=== PATIENT | male | born 1970 | race Caucasian/White ===

== ENCOUNTER 2016-05-18 15:53 | Inpatient (IN) | payer MEDICAID ==
[~2016-05-18] VITALS: Ht 170.2 cm; Wt 73.0 kg
[~2016-05-18 15:53] MED LIST: IBUP800T25 PO
[2016-05-18] MEDS ORDERED: ONDANSETRON (ODT) 4 MG TAB ODT STA ×2 (18:13→19:51)
[2016-05-18] MEDS ORDERED: LIDOCAINE/MYLANTA 40 ML BTL PO STA (18:13)
[2016-05-18] MEDS ORDERED: FAMOTIDINE 20 MG TAB PO STA (18:13)
[2016-05-18] MEDS ORDERED: HYDROCODONE/APAP (5/325) TAB PO ONE (18:30)
[2016-05-18 18:48] LABS: ADD UMIC YES; URINE BILIRUBIN (Dip) NEGATIVE (NEGATIVE); URINE BLOOD (Dip) 1+ (NEGATIVE); URINE COLOR LT. YELLOW (YELLOW); URINE KETONES (Dip) NEGATIVE (NEGATIVE); URINE LEUKOCYTE ESTERASE (Dip) NEGATIVE (NEGATIVE); URINE NITRITE (Dip) NEGATIVE (NEGATIVE); URINE TOTAL PROTEIN (Dip) 2+ (NEGATIVE); URINE UROBILINOGEN (Dip) 0.2 E.U./dL (0.1-1.0)
--- NOTE | 2016-05-18 18:55 | RADRPT ---
PROCEDURE: Abdominal ultrasound CLINICAL INDICATION: Abdominal pain TECHNIQUE: Yap scale, color Doppler, and spectral Doppler ultrasound images of the right upper qu adrant. COMPARISON: None FINDINGS: Pancreas: Visualized portions appear of normal echogenicity, no focal lesions. Liver: Morphology: Normal in size and contour. Echogenicity: Normal. Focal lesions: None. Main portal vein: Patent with hepatopetal flow. Biliary System: Normal appearing gallbladder wall. Multiple gallstones are present. No intra or extra-hepatic biliary dilatation. Common bile duct measures 3.3 mm in maximal dimension. Kidneys: Right 11.0 cm in length. Normal echogenicity. No hydronephrosis. 9 mm nonobstructive renal calculus is present. No free fluid identified. IMPRESSION: Cholelithiasis without evidence of abnormal gallbladder wall thickening to suggest cholecystitis. Normal caliber of the intrahepatic and extrahepatic biliary system. Nonobstructive 9 mm calculus of the right kidney. RPTAT: AADD .Arsen Stephenson MD, MD Date Time Electronically viewed and signed by .Arsen Stephenson MD, on 05/18/2016 18:55 .B/
[2016-05-18 19:07] LABS: HEMATOCRIT 43.6 % (42.0-52.0); HEMOGLOBIN 14.6 g/dl (14.0-18.0); MEAN CORPUSCULAR HEMOGLOBIN 30.6 pg (29.0-33.0); MEAN CORPUSCULAR HGB CONC 33.3 g/dl (32.0-37.0); MEAN CORPUSCULAR VOLUME 91.8 fl (82.0-101.0); MEAN PLATELET VOLUME 8.4 fl (7.4-10.4); PLATELET COUNT 249 10^3/UL (140-440); RED BLOOD COUNT 4.75 10^6/ul (4.70-6.10); RED CELL DISTRIBUTION WIDTH 13.1 % (11.5-14.5); UNCORRECTED WBC 19.3 10^3/ul (4.8-10.8); WHITE BLOOD COUNT 19.3 10^3/ul (4.8-10.8)
[2016-05-18 19:08] LABS: CONDITION 1; LH ANALYZER COMMENTS 1
[2016-05-18 19:12] LABS: SQUAMOUS EPITHELIAL CELL,UR RARE
[2016-05-18 19:20] LABS: ALBUMIN 4.7 g/dl (3.3-4.9); POTASSIUM 3.7 mmol/L (3.5-5.1)
[2016-05-18 19:22] LABS: BILIRUBIN,INDIRECT 0.2 mg/dl (0-1.1); BILIRUBIN,TOTAL 0.2 mg/dl (0.2-1.3); CREATININE 0.85 mg/dl (0.61-1.24)
[2016-05-18 19:23] LABS: ALBUMIN/GLOBULIN RATIO 1.11; CALCIUM 9.4 mg/dl (8.4-10.2); TOTAL PROTEIN 8.9 g/dl (6.1-8.1)
[2016-05-18 19:56] LABS: LYMPHOCYTES # 1.5 10^3/ul (0.8-2.9); MONOCYTE # 0.4 10^3/ul (0.3-0.9); NEUTROPHIL # 17.4 10^3/ul (1.6-7.5)
[2016-05-18 19:57] LABS: PLATELET ESTIMATE PLT APPEAR ADEQUATE
[2016-05-18] MEDS ORDERED: morphine 10 MG INJ IM ONE (20:00)
--- NOTE | 2016-05-18 20:35 | RADRPT ---
PROCEDURE: CT Abdomen and Pelvis without contrast. CLINICAL INDICATION: Epigastric pain. TECHNIQUE: A CT scan of the abdomen and pelvis was performed without intravenous contrast. Zazueta l and sagittal reformatted images were generated. Images were reviewed on a high-resolution PACS wor kstation. CTDIvol: 8.70 mGy. DLP: 479.88 mGy-cm. COMPARISON: None. FINDINGS: The lung bases are clear. Evaluation of the abdominal and pelvic viscera is limited by the lack of oral and intravenous contra st. The liver is unremarkable. TheThere are stones in the gallbladder. The common bile duct is not dila domonique. The spleen is not enlarged. No pancreatic lesion is identified and there is no pancreatic ducta l dilatation. The adrenal glands are unremarkable. The kidneys are normal in size. There is no perinephric fat stranding. No hydronephrosis is seen. No urinary stone is identified. There is a 6 mm nonobstructing stone in the right kidney. The small and large bowel are normal in caliber. There is no bowel wall thickening. There is mild co lonic diverticulosis, most prominent along the descending colon. The appendix is normal. The urinary bladder is unremarkable. The pelvic organs are within normal limits. No lymphadenopathy is identified. There is no ascites. No pneumoperitoneum is seen. There hazy saccu lar aneurysm of the distal abdominal aorta measuring 3.2 cm in diameter. A 2.6 cm linear calcificat ion is seen within the central aortic lumen at this site, nonspecific. Minimal additional arterial c alcifications are identified. No suspicious osseous lesion is idenitified. IMPRESSION: 1. No inflammation, mass, or lymphadenopathy. 2. Normal appendix. 3. Nonobstructing 6 mm stone in the right kidney. 4. Cholelithiasis. 5. Mild colonic diverticulosis. 6. Distal abdominal aortic aneurysm measuring 3.2 cm in diameter. A 2.6 cm linear calcification is seen within the central aortic lumen at this site, nonspecific but possibly representing a partially calcified mural thrombus or an old dissection flap. This could be further evaluated with a CTA if clinically warranted. RPTAT: HTAR .Jone Díaz MD, MD Date Time Electronically viewed and signed by .Jone Díaz MD, on 05/18/2016 20:35 .R/
[2016-05-18] MEDS ORDERED: SOD CHLORIDE 0.9% 1,000 ML IV STA (20:51)
[2016-05-18] MEDS ORDERED: SOD CHLORIDE 0.9% 100 ML ONE (21:11)
[2016-05-18] MEDS ORDERED: IOHEXOL 100 ML ONE (21:11)
[2016-05-18] MEDS ORDERED: IOHEXOL 350MG/ML 50 ML BTL ONE (21:12)
--- NOTE | 2016-05-18 22:09 | RADRPT ---
PROCEDURE: CT abdomen and pelvis with. contrast. CLINICAL INDICATION: Epigastric pain. TECHNIQUE: IV contrast enhanced CT angiography examination of the abdomen and pelvis, with axial, sagittal and coronal reformatted images. 120 cc Omnipaque 350 nonionic IV contrast were employed. A utomated dose exposure control was employed. CTDI: 21.51 mGy and DLP: 496.24 mGy-cm. COMPARISON: None. FINDINGS: CT abdomen: The lung bases are clear. The heart size is normal, without pericardial thickening or effusion. The liver is normal in size and density without focal mass or intrahepatic biliary dilatation. The spleen is normal in size and homogeneous in density. The stomach is partially collapsed, but is delfina ssly unremarkable. The pancreas as visualized is normal. The gallbladder has gallstones with mild pericholecystic fluid and findings are suspicious for acute cholecystitis in setting of epigastric p ain. Recommend ultrasound correlation. Otherwise, the biliary tree is unremarkable and there is no evidence for biliary dilatation. The adrenal glands are symmetric and normal. The kidneys are sym metrically unremarkable as well. 5 cm nonobstructing calculus in the right kidney, otherwise, there is no evident left renal calculus, or bilateral obstructive uropathy or mass lesion is seen. 3 cm diameter distal abdominal aortic aneurysm with focal dissection and calcified intimal flap, oth erwise age indeterminate. The dissection is about 3 to 4 cm above the bifurcation. Aortic vascular c alcifications are present. There is no retroperitoneal lymphadenopathy. The sushant hepatis region i s clear. The bowel and mesentery, as visualized, are equally unremarkable. CT pelvis: Solid stool in the distal and terminal ileum compatible with small bowel motility disorder. The pel alecia organs are normal. The pelvic sidewalls and inguinal regions are clear. The sigmoid colon and rectum are all unremarkable. No mass, lymphadenopathy, or free fluid is seen. No acute inflammatio n is seen. The appendix is unremarkable. The surrounding osseous structures are remarkable for mild degenerative spondylosis of the spine. N o osteolytic or osteoblastic lesion is detected. IMPRESSION: 1. Gallstones with pericholecystic fluid, and findings may represent acute cholecystitis in setting of epigastric pain. 2. Recommend ultrasound correlation. 3. Solid stool in the distal and terminal ileum compatible with small bowel motility disorder, othe rwise nonspecific. 4. 3 cm diameter distal abdominal aortic aneurysm, with focal dissection, otherwise age indetermina te. RPTAT: [facility] Halle Silva Physician Date Time Electronically viewed and signed by Halle Silav Physician on 05/18/2016 22:09 RS/
[2016-05-18 22:15] VITALS: TEMP 98.5
[2016-05-18] MEDS ORDERED: PIPER-TAZO 3.375 GM IV (PMX) 100 ML IVPB ONE (22:30)
--- NOTE | 2016-05-18 22:36 | ERD ---
ER Documentation Chief Complaint Date/Time DATE: 05/18/16 TIME: 22:28 Chief Complaint Epigastric pain sice 1330 after eating lunch HPI Patient is a 45-year-old diabetic and hypertensive male who presents to the ED with sudden onset of epigastric pain that started today at 2 PM after eating food. He states that he had cake, oranges and vegetables with rice. He states that the pain is constant. He has never had this pain in the past. He has had one episode of non-bilious non-bloody emesis. He states that the pain as a burning sensation. He denies any radiation of pain. He denies fever or chills. He denies diarrhea, constipation. He denies headache or dizziness. He denies leg pain or swelling. He has taken Pepcid but states that has not helped with his symptoms. ROS All systems reviewed and are negative except as per history of present illness. Medications Home Meds Active Scripts Ibuprofen* (Motrin*) 800 Mg Tab, 800 MG PO Q6, #30 TAB Prov:CELSO BOLANOS PA-C 12/10/14 Allergies Allergies: Coded Allergies: No Known Allergy (Unverified , 05/18/16) PMhx/Soc Medical and Surgical Hx: pt denies Medical Hx, pt denies Surgical Hx History of Surgery: No Anesthesia Reaction: No Hx Neurological Disorder: No Hx Respiratory Disorders: No Hx Cardiac Disorders: Yes (htn) Hx Psychiatric Problems: No Hx Miscellaneous Medical Probl: Yes (dm) Hx Alcohol Use: Yes (OCCASSIONAL) Hx Substance Use: No Hx Tobacco Use: No Smoking Status: Former smoker FmHx Family History: No coronary disease, No diabetes, No other Physical Exam Vitals Vital Signs Date Time Temp Pulse Resp B/P Pulse Ox O2 Delivery O2 Flow Rate FiO2 05/18/16 20:02 98.7 71 18 177/91 99 Room Air 05/18/16 16:09 98.4 72 16 170/92 100 Physical Exam GENERAL: Well-developed, well-nourished male. Appears in mild distress HEAD: Normocephalic, atraumatic. EYES: Pupils are equally reactive bilaterally. EOMs grossly intact. No conjunctival erythema. ENT: Moist mucous membranes. No uvula deviation. No kissing tonsils. No exudates. NECK: Supple. No lymphadenopathy or thyromegaly. No meningismus. LUNG: Clear to auscultation bilaterally. No rhonchi, wheezing, rales or coarse breath sounds. HEART: Regular rate and rhythm. No murmurs, rubs or gallops. ABDOMEN: No scars, ecchymosis or rashes noted. Soft, and nondistended. Positive bowel sounds in all four quadrants. No rebound tenderness, no guarding. (-) McBurneys point tenderness. No CVA tenderness. tenderness in epigastric region and RUQ. BACK: No midline tenderness. Extremities: Equal pulses bilaterally. No peripheral clubbing, cyanosis or edema. No unilateral leg swelling. NEUROLOGIC: Alert and oriented. Moving all four extremities. 5/5 strength in all extremities. Normal speech. Steady gait. SKIN: Normal color. Warm and dry. No rashes or lesions. Capillary refill < 2 seconds Result Diagram: 05/18/16182205/18/161822 Results 24 hrs Laboratory Tests Test 05/18/16 18:23 Alanine Aminotransferase (ALT/SGPT) 32IU/L Albumin 4.7g/dl Albumin/Globulin Ratio 1.11 Alkaline Phosphatase 86IU/L Anion Gap 21 Aspartate Amino Transf (AST/SGOT) 27IU/L Blood Urea Nitrogen 12mg/dl Calcium Level 9.4mg/dl Carbon Dioxide Level 27mmol/L Chloride Level 102mmol/L Creatinine 0.85mg/dl Direct Bilirubin 0.00mg/dl Globulin 4.20g/dl Glucose Level 181mg/dl Hematocrit 43.6% Hemoglobin 14.6g/dl Indirect Bilirubin 0.2mg/dl Lipase 156U/L Lymphocytes # 1.510^3/ul Lymphocytes % 8.0% Mean Corpuscular Hemoglobin 30.6pg Mean Corpuscular Hemoglobin Concent 33.3g/dl Mean Corpuscular Volume 91.8fl Mean Platelet Volume 8.4fl Monocytes # 0.410^3/ul Monocytes % 2.0% Neutrophils # 17.410^3/ul Neutrophils % 90.0% Platelet Count 76646^3/UL Platelet Estimate PLT APPEAR ADEQUATE Potassium Level 3.7mmol/L Red Blood Count 4.7510^6/ul Red Cell Distribution Width 13.1% Sodium Level 146mmol/L Total Bilirubin 0.2mg/dl Total Protein 8.9g/dl Troponin I < 0.010ng/ml Urine Bilirubin NEGATIVE Urine Clarity CLEAR Urine Color LT. YELLOW Urine Glucose 0.5%% Urine Hemoglobin 1+ Urine Ketones NEGATIVE Urine Leukocyte Esterase NEGATIVE Urine Microscopic RBC 2-5/HPF Urine Microscopic WBC 0-2/HPF Urine Nitrite NEGATIVE Urine Specific [place] 1.020 Urine Squamous Epithelial Cells RARE Urine Total Protein 2+ Urine Urobilinogen 0.2 E.U./dL Urine pH 8.0 White Blood Count 19.310^3/ul Current Medications Medications (Trade) Dose Ordered Sig/Vicky Route PRN Reason Start Time Stop Time Status Last Admin Dose Admin Famotidine (Pepcid) 20 mg ONCE STAT PO 05/18/16 18:13 05/18/16 18:15 DC 05/18/16 18:52 Miscellaneous Medication (Gi Cocktail (2)) 40 ml ONCE STAT PO 05/18/16 18:13 05/18/16 18:15 DC 05/18/16 18:52 Ondansetron HCl (Zofran Odt) 4 mg ONCE STAT ODT 05/18/16 18:13 05/18/16 18:15 DC 05/18/16 18:52 Acetaminophen/ Hydrocodone Bitart (Fox (5/325)) 1 tab ONCE ONCE PO 05/18/16 18:30 05/18/16 18:31 DC 05/18/16 18:52 Morphine Sulfate (morphine) 4 mg ONCE ONCE IM 05/18/16 20:00 05/18/16 20:05 DC 05/18/16 20:04 Ondansetron HCl 4 mg 4 mg ONCE STAT ODT 05/18/16 19:51 05/18/16 19:52 DC 05/18/16 20:04 Sodium Chloride (NS) 1,000 ml @ 1,000 mls/hr Q1H STAT IV 05/18/16 20:51 05/18/16 21:50 DC 05/18/16 22:05 IV Flush 10 ml 10 ml STK-MED ONCE .ROUTE 05/18/16 21:11 05/18/16 21:12 DC 05/18/16 21:44 Sodium Chloride 100 ml @ ud STK-MED ONCE .ROUTE 05/18/16 21:11 05/18/16 21:12 DC 05/18/16 21:44 Iohexol (Omnipaque) 100 ml @ ud STK-MED ONCE .ROUTE 05/18/16 21:11 05/18/16 21:12 DC 05/18/16 21:44 Iohexol 50 ml 50 ml STK-MED ONCE .ROUTE 05/18/16 21:12 05/18/16 21:13 DC 05/18/16 21:44 Piperacillin Sod/ Tazobactam Sod (Zosyn 3.375gm/ 100 ml (Pmx)) 100 ml @ 200 mls/hr ONCE ONCE IVPB 05/18/16 22:30 05/18/16 22:59 Procedures/MDM ER COURSE: I kept the patient and/or family informed of laboratory and diagnostic imaging results throughout the emergency room course. EKG, MONITORS, & DIAGNOSTIC IMAGING: [place] [address] Radiology Main Line: [phone] DIAGNOSTIC IMAGING REPORT Patient: SHEEBA TAN : 1970 Age: 45 Sex: M MR #: [id number] DOS: 05/18/16 1813 Ordering MD: MARIANA FELIZ PA-C Location: [facility] Room/Bed: PROCEDURE: Abdominal ultrasound CLINICAL INDICATION: Abdominal pain TECHNIQUE: Yap scale, color Doppler, and spectral Doppler ultrasound images of the right upper quadrant. COMPARISON: None FINDINGS: Pancreas: Visualized portions appear of normal echogenicity, no focal lesions. Liver: Morphology: Normal in size and contour. Echogenicity: Normal. Focal lesions: None. Main portal vein: Patent with hepatopetal flow. Biliary System: Normal appearing gallbladder wall. Multiple gallstones are present. No intra or extra-hepatic biliary dilatation. Common bile duct measures 3.3 mm in maximal dimension. Kidneys: Right 11.0 cm in length. Normal echogenicity. No hydronephrosis. 9 mm nonobstructive renal calculus is present. No free fluid identified. IMPRESSION: Cholelithiasis without evidence of abnormal gallbladder wall thickening to suggest cholecystitis. Normal caliber of the intrahepatic and extrahepatic biliary system. Nonobstructive 9 mm calculus of the right kidney. RPTAT: AADD .Arsen Stephenson MD, MD Date Time Electronically viewed and signed by .Arsen Stephenson MD, MD on 05/18/2016 18:55 .B/ CC: MARIANA FELIZ PA-C [place] [address] Radiology Main Line: [phone] DIAGNOSTIC IMAGING REPORT Patient: SHEEBA TAN : 1970 Age: 45 Sex: M MR #: [id number] DOS: 05/18/162000 Ordering MD: MARIANA FELIZ PA-C Location: REPLACED BY [facility] Room/Bed: PROCEDURE: CT Abdomen and Pelvis without contrast. CLINICAL INDICATION: Epigastric pain. TECHNIQUE: A CT scan of the abdomen and pelvis was performed without intravenous contrast. Coronal and sagittal reformatted images were generated. Images were reviewed on a high-resolution PACS workstation. CTDIvol: 8.70 mGy. DLP: 479.88 mGy-cm. COMPARISON: None. FINDINGS: The lung bases are clear. Evaluation of the abdominal and pelvic viscera is limited by the lack of oral and intravenous contrast. The liver is unremarkable. TheThere are stones in the gallbladder. The common bile duct is not dilated. The spleen is not enlarged. No pancreatic lesion is identified and there is no pancreatic ductal dilatation. The adrenal glands are unremarkable. The kidneys are normal in size. There is no perinephric fat stranding. No hydronephrosis is seen. No urinary stone is identified. There is a 6 mm nonobstructing stone in the right kidney. The small and large bowel are normal in caliber. There is no bowel wall thickening. There is mild colonic diverticulosis, most prominent along the descending colon. The appendix is normal. The urinary bladder is unremarkable. The pelvic organs are within normal limits. No lymphadenopathy is identified. There is no ascites. No pneumoperitoneum is seen. There hazy saccular aneurysm of the distal abdominal aorta measuring 3.2 cm in diameter. A 2.6 cm linear calcification is seen within the central aortic lumen at this site, nonspecific. Minimal additional arterial calcifications are identified. No suspicious osseous lesion is idenitified. IMPRESSION: 1. No inflammation, mass, or lymphadenopathy. 2. Normal appendix. 3. Nonobstructing 6 mm stone in the right kidney. 4. Cholelithiasis. 5. Mild colonic diverticulosis. 6. Distal abdominal aortic aneurysm measuring 3.2 cm in diameter. A 2.6 cm linear calcification is seen within the central aortic lumen at this site, nonspecific but possibly representing a partially calcified mural thrombus or an old dissection flap. This could be further evaluated with a CTA if clinically warranted. RPTAT: HTAR .Jone Díaz MD, MD Date Time Electronically viewed and signed by .Jone Díaz MD, on 05/18/2016 20:35 .R/ CC: MARIANA FELIZ PA-C [place] [address] Radiology Main Line: [phone] DIAGNOSTIC IMAGING REPORT Patient: SHEEBA TAN : 1970 Age: 45 Sex: M MR #: [id number] DOS: 05/18/162050 Ordering MD: MARIANA FELIZ PA-C Location: REPLACED BY [facility] Room/Bed: PROCEDURE: CT abdomen and pelvis with. contrast. CLINICAL INDICATION: Epigastric pain. TECHNIQUE: IV contrast enhanced CT angiography examination of the abdomen and pelvis, with axial, sagittal and coronal reformatted images. 120 cc Omnipaque 350 nonionic IV contrast were employed. Automated dose exposure control was employed. CTDI: 21.51 mGy and DLP: 496.24 mGy-cm. COMPARISON: None. FINDINGS: CT abdomen: The lung bases are clear. The heart size is normal, without pericardial thickening or effusion. The liver is normal in size and density without focal mass or intrahepatic biliary dilatation. The spleen is normal in size and homogeneous in density. The stomach is partially collapsed, but is grossly unremarkable. The pancreas as visualized is normal. The gallbladder has gallstones with mild pericholecystic fluid and findings are suspicious for acute cholecystitis in setting of epigastric pain. Recommend ultrasound correlation. Otherwise, the biliary tree is unremarkable and there is no evidence for biliary dilatation. The adrenal glands are symmetric and normal. The kidneys are symmetrically unremarkable as well. 5 cm nonobstructing calculus in the right kidney, otherwise, there is no evident left renal calculus, or bilateral obstructive uropathy or mass lesion is seen. 3 cm diameter distal abdominal aortic aneurysm with focal dissection and calcified intimal flap, otherwise age indeterminate. The dissection is about 3 to 4 cm above the bifurcation. Aortic vascular calcifications are present. There is no retroperitoneal lymphadenopathy. The sushant hepatis region is clear. The bowel and mesentery, as visualized, are equally unremarkable. CT pelvis: Solid stool in the distal and terminal ileum compatible with small bowel motility disorder. The pelvic organs are normal. The pelvic sidewalls and inguinal regions are clear. The sigmoid colon and rectum are all unremarkable. No mass, lymphadenopathy, or free fluid is seen. No acute inflammation is seen. The appendix is unremarkable. The surrounding osseous structures are remarkable for mild degenerative spondylosis of the spine. No osteolytic or osteoblastic lesion is detected. IMPRESSION: 1. Gallstones with pericholecystic fluid, and findings may represent acute cholecystitis in setting of epigastric pain. 2. Recommend ultrasound correlation. 3. Solid stool in the distal and terminal ileum compatible with small bowel motility disorder, otherwise nonspecific. 4. 3 cm diameter distal abdominal aortic aneurysm, with focal dissection, otherwise age indeterminate. RPTAT: [facility] Physician Rafa Date Time Electronically viewed and signed by Physician Rafa on 05/18/2016 22:09 RS/ CC: MARIANA FELIZ PA-C MEDICATIONS: IV fluids, Zofran, morphine, GI cocktail and Fox. Patient tolerated medication well with no adverse reaction. He states that the medication is helped with the symptoms LAB INTERPRETATION: CBC showed signs of infection. WBC is 19.3 and neutrophil shift of 90. CMP showed no evidence of electrolyte abnormalities, severe acidosis, alkalosis , renal failure, or liver disease. Lipase showed no evidence of acute pancreatitis. UA showed no evidence of acute infection or hematuria. MEDICAL DECISION MAKING: This is a 45-year-old male who presents with epigastric pain. Vital signs were reviewed. Patient is afebrile. Patient is not hypoxic. Not toxic. Temperature 98.4, blood pressure 170/92. I consulted with Dr. Franco regarding this patient who advised me to order to the CTA angiogram with run. Patient has gallstones with pericholecystic fluid which may suggest acute cholecystitis. Patient has a 3 cm diameter distal abdominal aortic aneurysm with focal dissection, otherwise age indeterminate. I consulted with Dr. Keen who will be admitting this patient. Zosyn was ordered. Plan was explained to patient. Patient advised to stop metformin for [address] scan with contrast. Patient understands. Patient is stable at transfer to ED 1. Patient has been given to Dr. Keen for admission. Departure Diagnosis: Primary Impression: Cholecystitis Condition: MARIANA Gottlieb PA-C May 18, 2016 22:35
--- NOTE | 2016-05-18 23:11 | QN ---
Documentation Comment The patient is a 45-year-old male, presenting to the ER with epigastric abdominal pain. He was seen in ER 2 then transferred to ER 1. The patient was examined by myself. The abdominal exam reveals moderate epigastric and right upper quadrant tenderness, no rigidity, no rebound tenderness, no CVA tenderness. The ultrasound of the gallbladder, abdominal pelvic CT and abdominal pelvic CTA are concerning for acute cholecystitis. He was treated with Zosyn IV, IV fluids, morphine IV for pain and Zofran IV for nausea with good response. Consultation: I discussed the patient with the on-call general surgeon Dr. Guerra at 10:40 PM who requested a HIDA scan Diagnostic impression: #1 probable acute cholecystitis #2 acute right nephrolithiasis #3 Abdominal aortic aneurysm Disposition: I discussed the patient with the on-call physician Dr. Trevino, who was made aware of the labs, the treatment, the patient condition, my discussion with the general surgeon. He admitted the patient at 10:45 PM DEEPAK CAMACHO MD May 18, 2016 23:11
[2016-05-19 00:15] VITALS: BP 146/78; PULSE 71; RESP 18
[2016-05-19 00:32] VITALS: Ht 170.2 cm; Wt 73.0 kg
[2016-05-19] MEDS ORDERED: AMLO-147 PO (01:18)
[2016-05-19] MEDS ORDERED: ATOR80TA75 PO (01:18)
[2016-05-19] MEDS ORDERED: METF500T PO (01:18)
[2016-05-19] MEDS ORDERED: ASP81 PO (01:18)
[2016-05-19] MEDS ORDERED: ONDANSETRON 4 MG INJ IV PRN (02:30)
[2016-05-19] MEDS ORDERED: morphine 2 MG INJ IV PRN (02:30)
[2016-05-19] MEDS: DEXTROSE 5%-0.45% NACL 1,000 ML IV SCH ×4 (02:37→22:30)
[2016-05-19] MEDS: PIPER-TAZO 3.375 GM IV (PMX) 100 ML IVPB SCH ×3 (05:36→17:57)
[2016-05-19 05:54] LABS: BASOPHIL # 0.1 10^3/ul (0.0-0.1); BASOPHILS % 0.4 % (0.0-2.0); EOSINOPHILS # 0.1 10^3/ul (0.0-0.5); EOSINOPHILS % 0.5 % (0.0-7.0); HEMATOCRIT 38.8 % (42.0-52.0); HEMOGLOBIN 13.2 g/dl (14.0-18.0); LYMPHOCYTES # 3.5 10^3/ul (0.8-2.9); LYMPHOCYTES % 22.4 % (15.0-51.0); MEAN CORPUSCULAR HEMOGLOBIN 31.2 pg (29.0-33.0); MEAN CORPUSCULAR HGB CONC 33.9 g/dl (32.0-37.0); MEAN CORPUSCULAR VOLUME 91.9 fl (82.0-101.0); MEAN PLATELET VOLUME 9.1 fl (7.4-10.4); MONOCYTE # 1.2 10^3/ul (0.3-0.9); MONOCYTES % 7.7 % (0.0-11.0); NEUTROPHIL # 10.8 10^3/ul (1.6-7.5); PLATELET COUNT 226 10^3/UL (140-440); RED BLOOD COUNT 4.22 10^6/ul (4.70-6.10); RED CELL DISTRIBUTION WIDTH 12.9 % (11.5-14.5); UNCORRECTED WBC 15.6 10^3/ul (4.8-10.8); WHITE BLOOD COUNT 15.6 10^3/ul (4.8-10.8)
[2016-05-19 06:02] LABS: CONDITION 1; POTASSIUM 3.1 mmol/L (3.5-5.1)
[2016-05-19 06:05] LABS: CREATININE 0.88 mg/dl (0.61-1.24)
[2016-05-19 06:06] LABS: CALCIUM 8.3 mg/dl (8.4-10.2)
[2016-05-19] MEDS ORDERED: DEXTROSE 50% 50 ML SYRINGE IV PRN ×2 (07:00)
[2016-05-19] MEDS ORDERED: hydrALAzine 20 MG INJ IV PRN (07:00)
[2016-05-19] MEDS ORDERED: GLUCOSE GEL 15 GRAM TUBE PO PRN ×2 (07:00)
[2016-05-19] MEDS ORDERED: GLUCOSE GEL 15 GRAM TUBE BUCCAL PRN (07:00)
[2016-05-19] MEDS ORDERED: GLUCAGON 1 MG INJ IM PRN (07:00)
[2016-05-19 07:57] VITALS: BP 138/81; RESP 18
[2016-05-19] MEDS: INSULIN ASPART [NOVOLOG] 3 ML PEN SC SCH ×4 (09:00→20:01)
--- NOTE | 2016-05-19 09:27 | HP ---
DATE OF ADMISSION: 05/18/2016 TIME: 10:30 p.m. CHIEF COMPLAINT: Abdominal pain. HISTORY OF PRESENT ILLNESS: The patient is a 45-year-old male with history of cge-njugrmk-hfzyomvnw diabetes and hypertension. The patient presents with abdominal pain that started today after he miramontes d lunch. The pain was in the right mid quadrant. He states that he had not had that pain before. De nies any change in his bowel movements. He had no other complaints. He had no nausea or vomiting. He states his pain has improved now. In the ED, gallbladder ultrasound shows cholelithiasis with no evidence of cholecystitis. The patient did end up having a CT abdomen and pelvis with contrast whi ch did suggest some possible acute cholecystitis in the proper setting. The patient has no other co mplaints at this time. PAST MEDICAL HISTORY: Ulb-irvmqiv-cppbgkemf diabetes and hypertension. PAST SURGICAL HISTORY: Denies. HOME MEDICATIONS: 1. Norvasc. 2. Aspirin. 3. Atorvastatin. 4. Metformin. ALLERGIES: NO KNOWN DRUG ALLERGIES. FAMILY HISTORY: Diabetes. SOCIAL HISTORY: Denies any current tobacco abuse. He smoked but quit a year ago. Denies any drug use. Denies any alcohol abuse. REVIEW OF SYSTEMS: A 12-point review of systems is negative except for that discussed in HPI. PHYSICAL EXAMINATION: VITAL SIGNS: Temperature is 98.5, pulse 71, respiratory rate 18, BP is 146/78, saturation 99% on ro om air. GENERAL: No acute distress, alert and oriented. HEENT: Normocephalic, atraumatic. LUNGS: Clear to auscultation. CARDIOVASCULAR: Regular rate and rhythm. ABDOMEN: Nondistended, nontender, soft. EXTREMITIES: No clubbing, cyanosis, or edema. LABORATORIES: White count 19.3, H and H within normal limits. Chemistry: Sodium is 146, anion gap is 21. Total protein is 8.9. UA is within normal limits except for 2+ protein. DIAGNOSTICS: Gallbladder ultrasound showed cholelithiasis without evidence of cholecystitis and non obstructive 9 mm calculus in the right kidney. Abdominal pelvis CT showed no inflammation, mass, or lymphadenopathy. Normal appendix, nonobstructing 6 mm stone in the right kidney, cholelithiasis, d istal abdominal aortic aneurysm measuring 3.2 cm in diameter. A CTA was recommended. Abdominal anand ography showed a gallstone with pericholecystic fluid. Findings may represent acute cholecystitis, recommend ultrasound correlation. Solid stool in the distal and terminal ileum compatible with small bowel multi-disorder, otherwise nonspecific and a 3 cm diameter distal abdominal aortic aneurysm wi th focal dissection, otherwise, age indeterminate. ASSESSMENT AND PLAN: 1. Abdominal pain secondary to possible cholecystitis versus choledocholithiasis, less likely from an abdominal aortic aneurysm. Dr. Silver of surgery has been consulted. At this time, he does not feel that the patient has cholecystitis. His abdominal exam is benign. Will treat with Zosyn IV. We will get a HIDA scan to further evaluate for cholecystitis. The patient will need monitoring of that abdominal aortic aneurysm in the future as an outpatient. 2. Jwn-qxwydqo-ubnrprnjz diabetes, NovoLog sliding scale. 3. Hypertension. We will hold p.o. medications at this time as the patient is n.p.o. 4. Abdominal aortic aneurysm 3 cm in length. There was focal dissection, this will need to b e monitored as an outpatient and surgery is on the case. 5. Prophylaxis: SCDs or rather just ambulation. Dictated By: BOBBY HERNANDEZ MD BS/NTS Conf#: [id number] DID#: [id number]
--- NOTE | 2016-05-19 09:57 | CONS ---
DATE OF ADMISSION: 05/18/2016 DATE OF CONSULTATION: 05/19/2016 HISTORY OF PRESENT ILLNESS: Mr. Beck is a 45-year-old male who presented to the emergency room du e to acute onset of epigastric pain beginning at 2:00 after eating food. It was constant and was th ere was the initial episode. He had 1 episode of emesis and presented to the ER. His workup was co ncerning for cholecystitis, and I was called for consultation. MEDICATIONS: Motrin. ALLERGIES: NO KNOWN DRUG ALLERGIES. PAST MEDICAL HISTORY: Known AAA. PAST SURGICAL HISTORY: None. SOCIAL HISTORY: Denies drinking, drug use or smoking. PHYSICAL EXAMINATION GENERAL: He is a well-developed, well-nourished male in no apparent distress. VITAL SIGNS: He is afebrile. Vital signs stable. CHEST: Clear to auscultation bilaterally. HEART: Regular rhythm. ABDOMEN: Soft, nondistended, nontender. Specifically, there is no right upper quadrant or epigastr ic tenderness. LABORATORY DATA: Today revealed white count of 15 down from 19, hematocrit of 38 and platelets of 2 26. Sodium 144, potassium 3.1, chloride 103, CO2 of 27, BUN and creatinine 11 and 0.8, and glucose 184. LFTs yesterday were normal limits. An ultrasound revealed cholelithiasis without evidence of abnormal gallbladder wall thickening to suggest cholecystitis. He then had a CT of his abdomen and pelvis which revealed cholelithiasis. A repeat CT with contrast reveals cholelithiasis with mild pe richolecystic fluid. ASSESSMENT AND PLAN: Mr. Beck is a 45-year-old male with epigastric pain of uncertain etiology. 1. The patient possibly could have had an episode of biliary colic, but biliary colic would not cau se an elevated white count. 2. I highly doubt the findings are cholecystitis, due to the fact that the patient is completely as ymptomatic and has a benign abdomen. The ultrasound really just shows cholelithiasis and no gallbla dder wall thickening or pericholecystic fluid. An ultrasound is much for specific for gallbladder d isease than a CAT scan. 3. At this point, I think the patient has asymptomatic cholelithiasis. 4. I would feed the patient. If he is able to tolerate p.o. and remains pain free, would discharge home. If symptoms return, we would consider a laparoscopic cholecystectomy. Dictated By: KG SILVERIO/ALISON Conf#: [id number] DID#: [id number]
[2016-05-19] MEDS ORDERED: CLON-379 PO (12:23)
[2016-05-19] MEDS ORDERED: HYD25 PO (12:23)
--- NOTE | 2016-05-19 12:24 | PDOCDIS ---
Discharge Instructions DIAGNOSIS Discharge Diagnosis: 1. cholelithiasis with biliary colic 2. abdominal aneurysm 3. hypertension CONDITION Patient Condition: Stable HOME CARE INSTRUCTIONS: Diet Instructions: Low Fat /Cholesterol ACTIVITY: Activity Restrictions: Slowly Increase Activity Avoid heavy lifting FOLLOW UP/APPOINTMENTS Appointments 1. Follow up with your primary care provider in one week 2. Follow up with Dr. Jose Silver in 2 weeks 3. Follow up with Dr. Levy Hassan in 1-2 weeks OTHER ORDERS: Other Orders: 1. Call Dr. Silver if you have worsening abdominal pain/nausea/vomiting LINDY THRASHER May 19, 2016 12:24
[2016-05-19] MEDS ORDERED: HYDR-906 PO (12:25)
[2016-05-19] MEDS ORDERED: POTASSIUM CHLORIDE 250 ML IVPB ONE (12:30)
--- NOTE | 2016-05-19 15:31 | PN ---
Date/Time of Note Date/Time of Note DATE: 05/19/16 TIME: 15:25 Assessment/Plan VTE Prophylaxis VTE Prophylaxis Intervention: SCD's Lines/Catheters IV [facility] Type ([facility] Peripheral IV Urinary Cath still in place: No Assessment/Plan Chief Complaint/Hosp Course Assessment and plan 1. Abdominal pain secondary to cholelithiasis and possible cholecystitis. HIDA scan is pending. Surgeon is following. We'll provide with analgesics as needed. Of note patient with abdominal pain at this time. We'll await result. 2. Tsg-odohowx-zapnrmcis diabetes. Continue on insulin regimen for now. 3. Abdominal aortic aneurysm. Abdominal angiography did show 3 cm diameter distal abdominal aortic aneurysm with focal dissection. We'll get vascular surgeon consultation. Continue blood pressure control 4. Essential hypertension. We'll continue on antihypertensives and adjust as needed Disposition and plan: Follow up on HIDA scan result. Vascular surgeon to follow for abdominal aortic aneurysm. Continue inpatient monitoring Discussed plan of care with Dr. Gutierres Problems: Subjective 24 Hr Interval Summary Free Text/Dictation No reports of abdominal pain at this time. Exam/Review of Systems Vital Signs Vitals Vital Signs Date Time Temp Pulse Resp B/P Pulse Ox O2 Delivery O2 Flow Rate FiO2 05/19/16 09:30 98.4 05/19/16 07:57 74 18 138/81 99 05/19/16 00:15 Room Air Intake and Output 05/18/16 05/18/16 05/19/16 15:00 23:00 07:00 Intake Total 1550 ml Balance 1550 ml Exam General: No acute signs or symptoms of distress Eyes: pupils equal round, Anicteric sclera Neck: Supple nontender, no JVD Cardiac: S1, S2 auscultated, regular rhythm and rate Pulmonary: No coarse rhonchi or breathing auscultated GI: Abdomen soft nontender nondistended, bowel sounds active Extremities: No edema bilateral lower extremities Skin: Clean dry and intact Neurologic: Alert to person place and time and situation Results Result Diagram: 05/19/16 04205/19/16 042 Results 24 hrs Laboratory Tests Test 05/18/16 18:23 05/19/16 04:20 05/19/16 08:11 05/19/16 11:47 Alanine Aminotransferase (ALT/SGPT) 32 Albumin 4.7 Albumin/Globulin Ratio 1.11 Alkaline Phosphatase 86 Anion Gap 21 H 17 H Aspartate Amino Transf (AST/SGOT) 27 Blood Urea Nitrogen 12 11 Calcium Level 9.4 8.3 L Carbon Dioxide Level 27 27 Chloride Level 102 103 Creatinine 0.85 0.88 Direct Bilirubin 0.00 Globulin 4.20 H Glucose Level 181 184 Hematocrit 43.6 38.8 L Hemoglobin 14.6 13.2 L Indirect Bilirubin 0.2 Lipase 156 Lymphocytes # 1.5 3.5 H Lymphocytes % 8.0 L 22.4 Mean Corpuscular Hemoglobin 30.6 31.2 Mean Corpuscular Hemoglobin Concent 33.3 33.9 Mean Corpuscular Volume 91.8 91.9 Mean Platelet Volume 8.4 9.1 Monocytes # 0.4 1.2 H Monocytes % 2.0 7.7 Neutrophils # 17.4 H 10.8 H Neutrophils % 90.0 H 69.0 Platelet Count 249 226 Platelet Estimate PLT APPEAR ADEQUATE Potassium Level 3.7 3.1 L Red Blood Count 4.75 4.22 L Red Cell Distribution Width 13.1 12.9 Sodium Level 146 H 144 Total Bilirubin 0.2 Total Protein 8.9 H Troponin I < 0.010 Urine Bilirubin NEGATIVE Urine Clarity CLEAR Urine Color LT. YELLOW Urine Glucose 0.5% H Urine Hemoglobin 1+ H Urine Ketones NEGATIVE Urine Leukocyte Esterase NEGATIVE Urine Microscopic RBC 2-5 Urine Microscopic WBC 0-2 Urine Nitrite NEGATIVE Urine Specific [place] 1.020 Urine Squamous Epithelial Cells RARE Urine Total Protein 2+ H Urine Urobilinogen 0.2 E.U./dL Urine pH 8.0 White Blood Count 19.3 H 15.6 H Basophils # 0.1 Basophils % 0.4 Eosinophils # 0.1 Eosinophils % 0.5 Hemoglobin A1c 6.3 H Nucleated Red Blood Cells # 0.0 Nucleated Red Blood Cells % 0.0 Bedside Glucose 125 127 Medications Medications Current Medications Dextrose/Sodium Chloride 1,000 ml @ 100 mls/hr Q10H IV Last administered on 13:05; Admin Dose 100 MLS/HR; Start 05/19/16 at 02:30 Piperacillin Sod/ Tazobactam Sod (Zosyn 3.375gm/ 100 ml (Pmx)) 100 ml @ 200 mls /hr Q6 IVPB Last administered on 05/19/16 11:49; Admin Dose 200 MLS/HR; Start 05/19/16 at 06:00 Morphine Sulfate (morphine) 2 mg Q3H PRN IV PAIN; Start 05/19/16 at 02:30 Ondansetron HCl (Zofran Inj) 4 mg Q6H PRN IV NAUSEA AND/OR VOMITING; Start 05/19 at 02:30 Insulin Aspart (Novolog Insulin Pen) NOVOLOG *MILD* ALGORI... Q4 SC ; Start 05/19 at 09:00 Hydralazine HCl (Apresoline) 10 mg Q4H PRN IV SBP>170; Start 05/19/16 at 07:00 Miscellaneous Information 1 ea NOTE XX ; Start 05/19/16 at 07:00 Glucose (Glutose) 15 gm Q15M PRN PO DECREASED GLUCOSE; Start 05/19/16 at 07:00 Glucose (Glutose) 22.5 gm Q15M PRN PO DECREASED GLUCOSE; Start 05/19/16 at 07:00 Dextrose (D50w Syringe) 25 ml Q15M PRN IV DECREASED GLUCOSE; Start 05/19/16 at 07:00 Dextrose (D50w Syringe) 50 ml Q15M PRN IV DECREASED GLUCOSE; Start 05/19/16 at 07:00 Glucagon (Glucagen) 1 mg Q15M PRN IM DECREASED GLUCOSE; Start 05/19/16 at 07:00 Glucose 15 gm 15 gm Q15M PRN BUCCAL DECREASED GLUCOSE; Start 05/19/16 at 07:00 Potassium Chloride (KCl 40 MEQ/250 ML NS) 250 ml @ 62.5 mls/hr ONCE ONCE IVPB Last administered on 05/19/16t 13:04; Admin Dose 62.5 MLS/HR; Start 05/19/16 at 12:30; Stop 05/19/16 at 16:29 LINDY THRASHER May 19, 2016 15:31
--- NOTE | 2016-05-19 16:14 | RADRPT ---
PROCEDURE: HIDA scan CLINICAL INDICATION: 45 -year-old patient with abdominal pain. TECHNIQUE: Following the intravenous injection of 7.4 mCi of Tc-99m mebrofenin, multiple images of the abdomen were obtained up to 60 minutes post injection. COMPARISON: No prior studies. FINDINGS: The liver is promptly visualized, demonstrates homogeneous distribution of radionuclide. There is visualization of the common bile duct, gallbladder and gastrointestinal activity within nor mal time. IMPRESSION: No evidence to suggest the presence of common bile or cystic ducts obstruction. RPTAT: HH .Charis Ernst MD, MD Date Time Electronically viewed and signed by .Charis Ernst MD, on 05/19/2016 16:14 .L/
--- NOTE | 2016-05-19 16:44 | HP ---
DATE OF ADMISSION: 05/18/2016 TYPE OF CONSULTATION: Vascular surgery consultation. Dear Doctors: Mr. Beck is a 45-year-old gentleman whom presented with recent complaint of abdominal pain that started after him having lunch. The patient mentioned that he has right-sided abdominal pain and upon evaluation of a CAT scan, there was some suggestion that the patient may have acute cholecystitis. The patient is currently undergoing a HIDA scan for evaluation of that and upon his CT angiogram of the aortoiliac segments, there was suggestion of gallstones with pericholecystic fluid. At the moment, the patient denies shortness of breath, chest pain, nausea, vomiting, fever or chills. Patient denies claudication or rest pain-like symptoms. CT Angiogram further demonstrated an unusual ectatic infrarenal aorta with area of dissection and a bit saccular. REVIEW OF SYSTEMS: A 12-point review performed and negative except what is mentioned in the HPI. PAST MEDICAL HISTORY: Entails diabetes, hypertension, ex-smoker and has quit about a year ago. ALLERGIES: NO KNOWN DRUG ALLERGIES. FAMILY HISTORY: Diabetes, coronary artery disease. SOCIAL HISTORY: Ex-smoker. Denies current alcohol, tobacco or illicit drug use. PHYSICAL EXAMINATION: GENERAL: Alert and oriented x3, no apparent distress. HEENT: Normocephalic, atraumatic. PERRLA, EOMI. Mucosa moist. NECK: Supple. No carotid bruit. CHEST: Clear to auscultation bilaterally. No crackles. CARDIOVASCULAR: S1, S2 present. No murmurs. ABDOMEN: Soft, nontender, nondistended. Bowel sounds positive. EXTREMITIES: Lower extremities, palpable femoral pulses. Faint pedal pulses. Motor, sensory intact. Cap refill 2 to 3 seconds. ASSESSMENT AND PLAN: -Ectatic Infrarenal abdominal aorta with dissection: It seems the patient has developed an aneurysm like finding of the infrarenal aorta with what seems to be an area that has a saccular appearance with a focal dissection. A bit of an unusual anatomy, considering his age. In light of the current findings that he may have cholecystitis, would recommend to have that issue be resolved and we will plan to follow recommendations per general surgery. I would recommend for this to be surgically intervened on once he has resolved the issue of his workup for cholecystitis. -Continue with vascular optimization (BP meds, diet, nutrition, exercise, sugar control, antiplatelets). -Discussed findings with plan and management with the primary service. -Thank you for allowing us to partake in the care of your patient. Please call with any questions. Dictated By: MIGUELANGEL VIGIL/ALISON Conf#: [id number] DID#: [id number] [place]
[2016-05-19 20:08] VITALS: BP 135/79; RESP 18
[2016-05-20] MEDS: PIPER-TAZO 3.375 GM IV (PMX) 100 ML IVPB SCH ×3 (00:07→11:59)
[2016-05-20] MEDS: DEXTROSE 5%-0.45% NACL 1,000 ML IV SCH (00:09)
[2016-05-20] MEDS: INSULIN ASPART [NOVOLOG] 3 ML PEN SC SCH ×4 (01:00→11:32)
[2016-05-20 06:28] LABS: BASOPHIL # 0.1 10^3/ul (0.0-0.1); BASOPHILS % 0.6 % (0.0-2.0); EOSINOPHILS # 0.1 10^3/ul (0.0-0.5); EOSINOPHILS % 1.1 % (0.0-7.0); HEMOGLOBIN 12.6 g/dl (14.0-18.0); LYMPHOCYTES # 3.3 10^3/ul (0.8-2.9); LYMPHOCYTES % 27.8 % (15.0-51.0); MEAN CORPUSCULAR HEMOGLOBIN 31.4 pg (29.0-33.0); MEAN CORPUSCULAR HGB CONC 34.1 g/dl (32.0-37.0); MEAN CORPUSCULAR VOLUME 92.1 fl (82.0-101.0); MEAN PLATELET VOLUME 8.9 fl (7.4-10.4); MONOCYTES % 8.4 % (0.0-11.0); NEUTROPHIL # 7.5 10^3/ul (1.6-7.5); NEUTROPHILS % 62.1 % (39.0-77.0); PLATELET COUNT 207 10^3/UL (140-440); RED BLOOD COUNT 4.02 10^6/ul (4.70-6.10); RED CELL DISTRIBUTION WIDTH 12.9 % (11.5-14.5)
[2016-05-20 06:43] LABS: CONDITION 1; POTASSIUM 3.2 mmol/L (3.5-5.1)
[2016-05-20 06:46] LABS: CREATININE 1.06 mg/dl (0.61-1.24)
[2016-05-20 08:05] VITALS: BP 122/70; RESP 16
[2016-05-20] MEDS ORDERED: LIDOCAINE 1% (MPF) 30 ML INJ ONE (09:51)
[2016-05-20] MEDS ORDERED: BUPIVACAINE 0.25%/EPI (SDV) 30 ML INJ ONE (09:51)
--- NOTE | 2016-05-20 14:12 | RADRPT ---
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 Physician: LINDY THRASHER Quality: Good Procedures: Transthoracic echocardiogram with complete 2D, M-Mode, and doppler examination. Indications: cardiac clearance. 2D/M Mode Doppler Measurement Value Normal Ranges Measurement Value Normal Ranges LVIDd 2D 4.5 3.5 - 5.6 cm AV Peak Jake 1.2 m/sec LVIDs 2D 2.5 2.1 - 4.1 cm AV Peak PG 6.2 mmHg LVPWd 2D 1.2 0.6 - 1.1 cm LVOT Peak Jake 0.9 m/sec IVSd 2D 1.3 0.6 - 1.1 cm LVOT Peak PG 3.0 mmHg AoR Diam 2D 3.3 2.0 - 3.7 cm MV E Peak Jake 0.8 m/sec EDV 2D 94.0 cm3 MV A Peak Jake 0.5 m/sec ESV 2D 16.4 cm3 MV E/A 1.6 LA Dimen 2D 3.5 2.3 - 4.0 cm MV Decel Time 108 msec MV Decel [place] 8 MV E/A 1.6 TR Peak Jake 2.1 m/sec TR Peak PG 17.0 mmHg RVSP 20.0 mmHg Findings Left Ventricle: Normal left ventricular systolic function. Normal left ventricular cavity size. Mild concentric left ventricular hypertrophy. Ejection fraction is visually estimated at 60 %. Tissue Doppler/Mitral Doppler indices are within normal limits. Right Ventricle: Normal right ventricular size. Normal right ventricular systolic function. Left Atrium: The left atrium is normal in size. Right Atrium: The right atrium is normal in size. Mitral Valve: Mitral valve leaflets appear mildly thickened. Mild mitral annular calcification. Trace mitral regurgitation. Aortic Valve: Normal appearance of the aortic valve. No significant aortic stenosis or insufficiency. Tricuspid Valve: Normal appearance of the tricuspid valve. Estimated peak PA systolic pressure 20 mmHg. There is trace tricuspid regurgitation. Pericardium: Normal pericardium with no significant pericardial effusion. Aorta: Normal aortic root. IVC: Normal size and normal respiratory collapse consistent with normal right atrial pressure. Conclusions Normal left ventricular systolic function. Normal left ventricular cavity size. Mild concentric left ventricular hypertrophy. Ejection fraction is visually estimated at 60 %. Tissue Doppler/Mitral Doppler indices are within normal limits. No significant valvular stenosis or regurgitation seen. Estimated peak PA systolic pressure 20 mmHg based on RA pressure of 3 mmHg. Electronically Signed By: Tigre Márquez 20-May-2016 14:11:35 -0800 Patient Name: SHEEBA TAN Study Date: 20-May-2016 [id number]
--- NOTE | 2016-05-20 16:06 | DS ---
Date/Time of Note Date/Time of Note DATE: 05/20/16 TIME: 16:00 Discharge Summary Admission/Discharge Info Admit Date/Time May 18, 2016 at 22:53 Discharge Date/Time May 20, 2016 at 14:12 Final Diagnosis 1. Biliary colic secondary to cholelithiasis 2. Diabetes 3. Abdominal aortic aneurysm measuring 3 cm 4. Essential hypertension Patient Condition: Stable Consults 1. Dr. Jose Silver 2. Dr. Levy Amadolizandro Hospital Course This is a 45-year-old male with history of yvy-dbpsspd-wplsmqrid diabetes, hypertension, who came to [facility] due to reports of abdominal pain that started on the day of his admission. He did report that the pain was in his right upper abdominal quadrant. He denies any change in his bowel movements. He had no nausea or vomiting. He did feel to [facility] for further evaluation. Upon examination he had a gallbladder ultrasound did show cholelithiasis with no evidence of cholecystitis. Patient did however did end up having CT scan of the abdomen that did show possible acute cholecystitis. Of note there was incidental finding of possible distal abdominal aortic aneurysm measuring 3.2 cm in diameter. Patient did have follow-up CTA of the abdomen that did show her cholecystic fluid and possible acute cholecystitis. It also again did redemonstrate 3 cm diameter distal abdominal aortic aneurysm. Patient was consulted by general surgeon as well as by vascular surgeon. We did get follow- up HIDA scan that was negative. On further evaluation of the patient his abdomen is benign and he did not report any kind of abdominal pain. Patient was instructed to follow-up with General surgeon as outpatient for possible elective cholecystectomy should he have worsening of biliary colic. For his abdominal aortic aneurysm, vascular surgeon did see him. Since patient was with benign abdomen, we did do need to optimize him and control his blood pressure. During his course of stay did improve. Per vascular surgeon he would follow-up with him as outpatient for any further possible intervention. Patient was otherwise optimized medically. He was continued on insulin for his diabetes and we did continue him on antihypertensives for his hypertension. The plan of care was discussed with the patient and patient did verbalize understanding. On the day of discharge patient was in stable condition Discussed plan of care with [facility] Hydrocodone/Acetaminophen ([place] 5-325 Tablet) 1 Each Tablet, 1 EACH PO Q4 Y for PAIN, #20 TAB Prov:LINDY THRASHER 05/19/16 Clonidine Hcl* (Clonidine Hcl*) 0.1 Mg Tab, 0.1 MG PO Q4H Y for SYSTOLIC BP GREATER THAN 160, #30 TAB Prov:LINDY THRASHER 05/19/16 Hydrochlorothiazide* (Hydrochlorothiazide*) 25 Mg Tab, 25 MG PO DAILY, #30 TAB Prov:LINDY THRASHER 05/19/16 Reported Medications Metformin Hcl (Glucophage) 500 Mg Tablet, 500 MG PO WITH BREAKFAST DINNE, #60 TAB 05/19/16 Atorvastatin* (Atorvastatin*) 80 Mg Tablet, 80 MG PO QHS 05/19/16 Amlodipine Besylate* (Amlodipine Besylate*) 10 Mg Tablet, 10 MG PO DAILY 05/19/16 Aspirin (Aspirin) 81 Mg Chew, 81 MG PO DAILY, TAB.CHEW 05/19/16 Follow-up Plan CONDITION Patient Condition: Stable HOME CARE INSTRUCTIONS: Diet Instructions: Low Fat /Cholesterol ACTIVITY: Activity Restrictions: Slowly Increase Activity Avoid heavy lifting FOLLOW UP/APPOINTMENTS Appointments 1. Follow up with your primary care provider in one week 2. Follow up with Dr. Jose Silver in 2 weeks 3. Follow up with Dr. Levy Hassan in 1-2 weeks OTHER ORDERS: Other Orders: 1. Call Dr. Silver if you have worsening abdominal pain/nausea/vomiting Pending Labs Laboratory Tests Test 05/19/16 16:48 05/19/16 19:38 05/20/16 00:56 05/20/16 04:57 Bedside Glucose 121mg/dL (70-220) 121mg/dL (70-220) 112mg/dL (70-220) 124mg/dL (70-220) Test 05/20/16 05:20 05/20/16 07:56 05/20/16 11:31 Anion Gap 13 (8-16) Basophils # 0.110^3/ul (0.0-0.1) Basophils % 0.6% (0.0-2.0) Blood Urea Nitrogen 9mg/dl (7-20) Calcium Level 8.0mg/dl (8.4-10.2) Carbon Dioxide Level 29mmol/L (21-31) Chloride Level 102mmol/L (97-110) Creatinine 1.06mg/dl (0.61-1.24) Eosinophils # 0.110^3/ul (0.0-0.5) Eosinophils % 1.1% (0.0-7.0) Glucose Level 113mg/dl (70-220) Hematocrit 37.0% (42.0-52.0) Hemoglobin 12.6g/dl (14.0-18.0) Lymphocytes # 3.310^3/ul (0.8-2.9) Lymphocytes % 27.8% (15.0-51.0) Mean Corpuscular Hemoglobin 31.4pg (29.0-33.0) Mean Corpuscular Hemoglobin Concent 34.1g/dl (32.0-37.0) Mean Corpuscular Volume 92.1fl (82.0-101.0) Mean Platelet Volume 8.9fl (7.4-10.4) Monocytes # 1.010^3/ul (0.3-0.9) Monocytes % 8.4% (0.0-11.0) Neutrophils # 7.510^3/ul (1.6-7.5) Neutrophils % 62.1% (39.0-77.0) Nucleated Red Blood Cells # 0.010^3/ul (0.0-0.0) Nucleated Red Blood Cells % 0.0/100WBC (0.0-0.0) Platelet Count 33966^3/UL (140-440) Potassium Level 3.2mmol/L (3.5-5.1) Red Blood Count 4.0210^6/ul (4.70-6.10) Red Cell Distribution Width 12.9% (11.5-14.5) Sodium Level 141mmol/L (135-144) White Blood Count 12.010^3/ul (4.8-10.8) Bedside Glucose 127mg/dL (70-220) 164mg/dL (70-220) LINDY THRASHER May 20, 2016 16:06
== END 2016-05-20 14:12 | disposition home or self-care (01) | DRG 446 ==
LOC: FTE 15:53 → PP2 22:53
PROVIDERS: ADMIT Internal Medicine; ATTEND Internal Medicine
DX: K80.20 Calculus of gallbladder without cholecystitis without obstruction (principal); I10 Essential (primary) hypertension; I71.4 Abdominal aortic aneurysm, without rupture; E11.9 Type 2 diabetes mellitus without complications; Z87.891 Personal history of nicotine dependence
CPT/HCPCS: 74176; 75635; 76705; 78226; 80048; 80053; 81001; 81003; 82962; 83036; 83690; 84484; 85025; 93005; 93306; A9537; J1815; J2270; J2543; J3480; J7030; Q9967

== ENCOUNTER 2016-05-24 11:01 | Emergency (ER) | payer MEDICAID ==
[~2016-05-24] VITALS: Ht 170.2 cm; Wt 70.0 kg
[~2016-05-24 11:01] MED LIST changes: +AMLO-147 PO; +ASP81 PO; +ATOR80TA75 PO; +CLON-379 PO; +HYD25 PO; +HYDR-906 PO; -IBUP800T25 PO; +METF500T PO
[2016-05-24 11:11] VITALS: Ht 170.2 cm; Wt 70.0 kg
[2016-05-24 12:18] LABS: BASOPHIL # 0.1 10^3/ul (0.0-0.1); BASOPHILS % 0.9 % (0.0-2.0); EOSINOPHILS # 0.2 10^3/ul (0.0-0.5); EOSINOPHILS % 2.2 % (0.0-7.0); HEMATOCRIT 37.7 % (42.0-52.0); HEMOGLOBIN 12.9 g/dl (14.0-18.0); LYMPHOCYTES # 2.2 10^3/ul (0.8-2.9); LYMPHOCYTES % 30.9 % (15.0-51.0); MEAN CORPUSCULAR HEMOGLOBIN 31.1 pg (29.0-33.0); MEAN CORPUSCULAR HGB CONC 34.1 g/dl (32.0-37.0); MEAN CORPUSCULAR VOLUME 91.1 fl (82.0-101.0); MEAN PLATELET VOLUME 8.2 fl (7.4-10.4); MONOCYTE # 0.6 10^3/ul (0.3-0.9); NEUTROPHIL # 4.2 10^3/ul (1.6-7.5); PLATELET COUNT 237 10^3/UL (140-440); RED BLOOD COUNT 4.14 10^6/ul (4.70-6.10); RED CELL DISTRIBUTION WIDTH 13.1 % (11.5-14.5); UNCORRECTED WBC 7.2 10^3/ul (4.8-10.8); WHITE BLOOD COUNT 7.2 10^3/ul (4.8-10.8)
[2016-05-24 12:20] LABS: ADD UMIC YES; URINE BILIRUBIN (Dip) NEGATIVE (NEGATIVE); URINE BLOOD (Dip) 1+ (NEGATIVE); URINE COLOR LT. YELLOW (YELLOW); URINE KETONES (Dip) NEGATIVE (NEGATIVE); URINE LEUKOCYTE ESTERASE (Dip) NEGATIVE (NEGATIVE); URINE NITRITE (Dip) NEGATIVE (NEGATIVE); URINE TOTAL PROTEIN (Dip) NEGATIVE (NEGATIVE); URINE UROBILINOGEN (Dip) 0.2 E.U./dL (0.1-1.0)
[2016-05-24 12:22] LABS: CONDITION 1
[2016-05-24 12:29] LABS: ALBUMIN 3.9 g/dl (3.3-4.9); POTASSIUM 3.5 mmol/L (3.5-5.1)
[2016-05-24 12:32] LABS: ALBUMIN/GLOBULIN RATIO 1.08; BILIRUBIN,INDIRECT 0.3 mg/dl (0-1.1); BILIRUBIN,TOTAL 0.3 mg/dl (0.2-1.3); CREATININE 1.15 mg/dl (0.61-1.24); TOTAL PROTEIN 7.5 g/dl (6.1-8.1)
--- NOTE | 2016-05-24 12:38 | RADRPT ---
PROCEDURE: Right Upper Quadrant Ultrasound. CLINICAL INDICATION: Patient experiencing Abdominal Pain. TECHNIQUE: Multiple real-time images were acquired of the patient's right upper quadrant abdomen a nd retroperitoneum utilizing a high resolution transducer. COMPARISON: Gallbladder ultrasound from 05/18/2016 and HIDA scan from 05/19/2016 FINDINGS: The liver measures 14.7 cm, and demonstrates increased echogenicity. The main portal vein is patent with proper directional flow. There is no intrahepatic biliary ductal dilatation. The extrahepatic c ommon bile duct measures 6 mm. There is cholelithiasis. There is thickening of the gallbladder wall although this may at least in part be due to underdistension. There is no pericholecystic fluid. The pancreas is not well visualized. The right kidney measures 11.3 cm and demonstrates normal echotexture. There is no right renal calcu ashlie or hydronephrosis. IMPRESSION: There is cholelithiasis. There is thickening of the gallbladder wall although this may at least in part be due to underdistension. There is no pericholecystic fluid. Acute cholecystitis is consider ed unlikely given the underdistension of the gallbladder. If clinical suspicion for acute cholecyst itis persists, a HIDA scan can be obtained for further evaluation. The CBD is top - normal in diameter. Mild to moderate fatty infiltration of the liver. RPTAT: EE Physician Anjali Date Time Electronically viewed and signed by Physician Anjali on 05/24/2016 12:37 /
[2016-05-24] MEDS ORDERED: KETOROLAC 60 MG INJ IM STA (13:36)
[2016-05-24] MEDS ORDERED: KETOROLAC 30 MG INJ IV STA (13:52)
--- NOTE | 2016-05-24 15:27 | ERD ---
ER Documentation Chief Complaint Date/Time DATE: 05/24/16 TIME: 15:19 Chief Complaint RUQ PAIN ; DENIES NAUSEA, VOMITTING HPI 45-year-old male complaining of the right upper quadrant pain since 9 AM this morning. Pain onset shortly after eating breakfast. The pain is constant, dull and pressure-like. Patient stated that he was admitted in this hospital for cholecystitis about 1 week ago, he was discharged 4 days ago. He had episode of pain lasting about 8 hours a day after discharge. And this morning the pain returned again. Both times the pain occurs shortly after eating. Patient was to be admitted for gallbladder removal surgery. Denies fever or chills. Denies nausea, vomiting, or diarrhea. ROS All systems reviewed and are negative except as per history of present illness. Medications Home Meds Active Scripts Hydrocodone/Acetaminophen ([place] 5-325 Tablet) 1 Each Tablet, 1 EACH PO Q4 Y for PAIN, #20 TAB Prov:LINDY THRASHER 05/19/16 Clonidine Hcl* (Clonidine Hcl*) 0.1 Mg Tab, 0.1 MG PO Q4H Y for SYSTOLIC BP GREATER THAN 160, #30 TAB Prov:LINDY THRASHER 05/19/16 Hydrochlorothiazide* (Hydrochlorothiazide*) 25 Mg Tab, 25 MG PO DAILY, #30 TAB Prov:LINDY THRASHER 05/19/16 Reported Medications Metformin Hcl (Glucophage) 500 Mg Tablet, 500 MG PO WITH BREAKFAST DINNE, #60 TAB 05/19/16 Atorvastatin* (Atorvastatin*) 80 Mg Tablet, 80 MG PO QHS 05/19/16 Amlodipine Besylate* (Amlodipine Besylate*) 10 Mg Tablet, 10 MG PO DAILY 05/19/16 Aspirin (Aspirin) 81 Mg Chew, 81 MG PO DAILY, TAB.CHEW 05/19/16 Allergies Allergies: Coded Allergies: No Known Allergy (Unverified , 05/18/16) PMhx/Soc History of Surgery: Yes Anesthesia Reaction: No Hx Neurological Disorder: Yes (childhood meningitis) Hx Respiratory Disorders: No Hx Cardiac Disorders: Yes (HTN, hyperlipidemia) Hx Psychiatric Problems: Yes Hx Miscellaneous Medical Probl: Yes (GALLSTONES) Hx Alcohol Use: Yes (occasional) Hx Substance Use: No Hx Tobacco Use: No Smoking Status: Never smoker Physical Exam Vitals Vital Signs Date Time Temp Pulse Resp B/P Pulse Ox O2 Delivery O2 Flow Rate FiO2 05/24/16 11:11 98.4 74 19 142/81 98 Physical Exam General impression: Well-developed, well-nourished, 45-year-old male, alert, oriented, in no acute distress Head: Normocephalic, atraumatic. Eyes: PERRL, EOM normal. Conjunctiva not injected. Respiration: Normal respiratory effort. Lungs clear to auscultate bilaterally. No wheezes, rales or rhonchi. Cardiovascular: Regular rate and rhythm. No murmurs or extra heart sounds. Abdomen: Abdomen normal to inspection. Right upper quadrant tenderness. No McBurney point tenderness. No masses or organomegaly. Bowel sounds normal. Neuro: Mental status normal, speech normal. Skin: Normal turgor. No rash or lesions. Psych: Normal mood and affect. Result Diagram: 05/24/16 1158 05/24/16 1158 Results 24 hrs Laboratory Tests Test 05/24/16 11:58 Alanine Aminotransferase (ALT/SGPT) 193IU/L Albumin 3.9g/dl Albumin/Globulin Ratio 1.08 Alkaline Phosphatase 104IU/L Anion Gap 18 Aspartate Amino Transf (AST/SGOT) 82IU/L Basophils # 0.110^3/ul Basophils % 0.9% Blood Urea Nitrogen 19mg/dl Calcium Level 9.0mg/dl Carbon Dioxide Level 28mmol/L Chloride Level 102mmol/L Creatinine 1.15mg/dl Direct Bilirubin 0.00mg/dl Eosinophils # 0.210^3/ul Eosinophils % 2.2% Globulin 3.60g/dl Glucose Level 167mg/dl Hematocrit 37.7% Hemoglobin 12.9g/dl Indirect Bilirubin 0.3mg/dl Lipase 130U/L Lymphocytes # 2.210^3/ul Lymphocytes % 30.9% Mean Corpuscular Hemoglobin 31.1pg Mean Corpuscular Hemoglobin Concent 34.1g/dl Mean Corpuscular Volume 91.1fl Mean Platelet Volume 8.2fl Monocytes # 0.610^3/ul Monocytes % 8.0% Neutrophils # 4.210^3/ul Neutrophils % 58.0% Nucleated Red Blood Cells # 0.010^3/ul Nucleated Red Blood Cells % 0.0/100WBC Platelet Count 92576^3/UL Potassium Level 3.5mmol/L Red Blood Count 4.1410^6/ul Red Cell Distribution Width 13.1% Sodium Level 144mmol/L Total Bilirubin 0.3mg/dl Total Protein 7.5g/dl Urine Bilirubin NEGATIVE Urine Clarity CLEAR Urine Color LT. YELLOW Urine Glucose 0.25%% Urine Hemoglobin 1+ Urine Ketones NEGATIVE Urine Leukocyte Esterase NEGATIVE Urine Microscopic RBC 2-5/HPF Urine Microscopic WBC NONE SEEN/HPF Urine Nitrite NEGATIVE Urine Specific [place] 1.025 Urine Total Protein NEGATIVE Urine Urobilinogen 0.2 E.U./dL Urine pH 6.0 White Blood Count 7.210^3/ul Current Medications Medications (Trade) Dose Ordered Sig/Vicky Route PRN Reason Start Time Stop Time Status Last Admin Dose Admin Ketorolac Tromethamine (Toradol) 60 mg ONCE STAT IM 05/24/16 13:36 05/24/16 13:53 DC Ketorolac Tromethamine (Toradol) 30 mg ONCE STAT IV 05/24/16 13:52 05/24/16 13:54 DC 05/24/16 14:46 Procedures/MDM 45-year-old male presented to ED with right upper quadrant pain. CBC and CMP was obtained. WBC was 7.2, significantly lower than previous visit. However, AST and ALT are slightly elevated at 82 and 193, respectively. Gallbladder ultrasound showed "cholelithiasis with thickening of the gallbladder wall although this may at least in part due to underdistention. Acute cholecystitis is not considered unlikely given the under distention of the gallbladder." Patient was given Toradol 30 mg i.v. for pain. After Toradol, patient appeared to be more comfortable. I discussed patient with Dr. Keen, who suggested that HIDA scan be performed for the patient. If HIDA scan is positive, patient will be admitted. If negative, patient will be discharged home with medication for pain control. I also talked to patient about follow-up with his PCP for general surgeon referral if he does not meet admission criteria today. At this time, patient is at HIDA scan. Patient is signed out to Dr. Keen pending HIDA scan results. RAYMOND BARAJAS NP May 24, 2016 15:27
--- NOTE | 2016-05-24 17:14 | RADRPT ---
PROCEDURE: Nuclear medicine hepatobiliary scan CLINICAL INDICATION: Cholelithiasis. TECHNIQUE: 8.7 mCi of technetium-99m Choletec was administered intravenously. Planar imaging of t he hepatobiliary system was performed. Delayed images were obtained. Images were reviewed on the h igh resolution PACS workstation. COMPARISON: Previous hepatic biliary scan from 05/19/2016. Ultrasound of the abdomen from earlier the same date. FINDINGS: There is normal and homogeneous uptake throughout the hepatobiliary system. There is normal emptyin g of radiotracer into the biliary tract. The common bile duct is normal. The gallbladder is visual ized at 45 minutes. There is visualization of the small bowel at 15 minutes. IMPRESSION: 1. Negative hepatobiliary scan. There is normal filling of the gallbladder. 2. Patent common bile duct with normal visualization of the small bowel. RPTAT: A[facility] Physician Cole Date Time Electronically viewed and signed by Physician Cole on 05/24/2016 17:13 /
[2016-05-24] MEDS ORDERED: IBUP-1542 PO (17:26)
[2016-05-24] MEDS ORDERED: HYDR-906 PO (17:36)
[2016-05-24 17:40] VITALS: BP 135/80; PULSE 60; RESP 18
--- NOTE | 2016-05-24 17:52 | EN ---
Date/Time of Note Date/Time of Note DATE: 05/24/16 TIME: 17:49 ER Progress Note The patient the patient is 45-year-old male, presenting to the ER because of recurrent abdominal pain. He was admitted recently for symptomatic biliary colic and had a negative HIDA scan and was discharged. He was evaluated by general surgeon Dr. Silver. He came back today because of recurrent abdominal pain. The initial workup was done by the PA in ED 2, pending on HIDA scan The patient was examined by me. The abdominal exam was unremarkable. HIDA scan was negative for acute cholecystitis. He is stable for outpatient follow- up Impression: Acute biliary colic Disposition I discussed the findings with the patient. I advised the patient to follow-up with the primary physician in the morning for immediate referral to general surgery for elective cholecystectomy, sooner if needed and return if any concern. He was discharged with [place] [id number] Radiology Main Line: [phone] DIAGNOSTIC IMAGING REPORT Patient: SHEEBA TAN : 1970 Age: 45 Sex: M MR #: [id number] DOS: 05/24/16 1331 Ordering MD: RAYMOND BARAJAS NP Location: [facility] Room/Bed: PROCEDURE: Nuclear medicine hepatobiliary scan CLINICAL INDICATION: Cholelithiasis. TECHNIQUE: 8.7 mCi of technetium-99m Choletec was administered intravenously. Planar imaging of the hepatobiliary system was performed. Delayed images were obtained. Images were reviewed on the high resolution PACS workstation. COMPARISON: Previous hepatic biliary scan from 05/19/2016. Ultrasound of the abdomen from earlier the same date. FINDINGS: There is normal and homogeneous uptake throughout the hepatobiliary system. There is normal emptying of radiotracer into the biliary tract. The common bile duct is normal. The gallbladder is visualized at 45 minutes. There is visualization of the small bowel at 15 minutes. IMPRESSION: 1. Negative hepatobiliary scan. There is normal filling of the gallbladder. 2. Patent common bile duct with normal visualization of the small bowel. RPTAT: A[facility] Yury Nur, Physician Date Time Electronically viewed and signed by Yury Nur, Physician on 05/24/2016 17: 13 JH/ CC: RAYMOND BARAJAS NP, MICHAEL M MD May 24, 2016 17:52
== END 2016-05-24 18:08 | disposition home or self-care (01) ==
LOC: FTE 11:01
DX: R10.11 Right upper quadrant pain (principal); I10 Essential (primary) hypertension; E11.9 Type 2 diabetes mellitus without complications; Z79.84 Long term (current) use of oral hypoglycemic drugs; Z79.82 Long term (current) use of aspirin
CPT/HCPCS: 36415; 76705; 78226; 80053; 81001; 83690; 85025; 96374; A9537; J1885; Z7502; 81003